=== PATIENT | female | born 1995 | race African-American/Black ===

== ENCOUNTER 2021-03-28 20:42 | Emergency (ER) | payer OTHER ==
[~2021-03-28] VITALS: Ht 175.3 cm; Wt 90.7 kg
[2021-03-28 21:13] LABS: URINE BILIRUBIN NEGATIVE (Negative); URINE BLOOD NEGATIVE (Negative); URINE CLARITY CLEAR; URINE COLOR YELLOW; URINE GLUCOSE-RANDOM* 1+ (Negative); URINE KETONES 2+ (Negative); URINE LEUKOCYTES-REFLEX NEGATIVE (Negative); URINE NITRITE-REFLEX NEGATIVE (Negative); URINE PROTEIN (DIPSTICK) TRACE (Negative); URINE SPECIFIC GRAVITY 1.015 (1.005-1.035)
[2021-03-28 21:31] LABS: AMP/METHAMP Negative (Negative); BARBITURATES Negative (Negative); BENZODIAZEPINES Negative (Negative); COCAINE Negative (Negative); METHADONE Negative (Negative); OPIATES Negative (Negative); PCP Negative (Negative)
[2021-03-28 21:52] LABS: BE(vivo) -2.4 mmol/L (-2 to +3); HCO3 20.2 mmol/L (22.0-26.0); PCO2 VENOUS 28.8 mmHg (41.0-51.0); PO2 VENOUS 54.7 mmHg (35.0-45.0)
[2021-03-28 22:01] LABS: ABSOLUTE NEUTROPHILS 7.9 thou/uL (1.4-8.2); BASOPHILS 0.7 % (0.0-2.0); EOSINOPHILS 0.3 % (0.0-3.0); HEMATOCRIT 35.5 % (37.0-47.0); HEMOGLOBIN 11.5 gm/dL (12.0-15.0); LYMPHOCYTES 25.6 % (24.0-44.0); MCH 25.1 pg (26.0-34.0); MCHC 32.3 g/dL (28.0-37.0); MCV 77.9 fL (80.0-100.0); MONOCYTES 6.1 % (1.0-8.0); PLATELET COUNT 451 thou/uL (150-400); POLYS 67.3 % (36.0-66.0); RBC 4.56 mil/uL (4.20-5.00); RDW 16.2 % (10.5-14.5); WBC 11.8 thou/uL (4.0-11.0)
[2021-03-28 22:12] LABS: CALCIUM 8.8 mg/dL (8.5-10.1); CREATININE 0.7 mg/dL (0.6-1.0)
[2021-03-28 22:13] LABS: POTASSIUM 4.6 mmol/L (3.5-5.1)
[2021-03-28 22:18] LABS: ALBUMIN 3.7 g/dL (3.4-5.0); TOTAL BILIRUBIN 0.6 mg/dL (0.2-1.0); TOTAL PROTEIN 8.1 g/dL (6.4-8.2)
[2021-03-29 01:32] VITALS: BP 186/80
--- NOTE | 2021-03-29 12:34 | EKG ---
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
== END 2021-03-29 01:33 | disposition home or self-care (01) ==
LOC: ER 20:42
PROVIDERS: Physician Assistant
DX: E86.0 Dehydration (principal); E11.65 Type 2 diabetes mellitus with hyperglycemia; R11.2 Nausea with vomiting, unspecified